=== PATIENT | male | born 1985 | race Caucasian/White ===

== ENCOUNTER → 2018-07-11 | Outpatient (CLI) | payer BC ==
[2018-07-11 05:39] LABS: HCT 41.9 % (39.0-53.0); HGB 13.7 gm/dL (13.0-17.5); MCH 29.1 pg (25.0-35.0); MCHC 32.7 g/dL (31.0-37.0); MCV 89.1 fL (80.0-100.0); Mean Platelet Volume 7.8; Platelet Count 255 k/uL (150-450); RBC 4.71 m/uL (4.30-5.90); RDW 12.6 % (11.5-15.5); WBC 4.9 k/uL (3.8-10.6)
[2018-07-11 05:54] LABS: ALT 31 U/L (21-72); AST 26 U/L (17-59); Alkaline Phosphatase 54 U/L (38-126); Anion Gap 14 mmol/L; Blood Urea Nitrogen 14 mg/dL (9-20); Calcium 9.7 mg/dL (8.4-10.2); Carbon Dioxide 24 mmol/L (22-30); Chloride 103 mmol/L (98-107); Cholesterol 183 mg/dL (<200); Glucose 88 mg/dL (74-99); HDL Cholesterol 66 mg/dL (40-60); LDL Cholesterol,Calculated 99 mg/dL (0-99); Potassium 4.1 mmol/L (3.5-5.1); Sodium 141 mmol/L (137-145); Total Bilirubin 0.5 mg/dL (0.2-1.3); Total Protein 7.9 g/dL (6.3-8.2); Triglycerides 90 mg/dL (<150)
== END | disposition home or self-care (01) ==
LOC: LABMAIN 04:21
PROVIDERS: ATTEND Family Medicine
DX: Z00.00 Encounter for general adult medical examination without abnormal findings (principal); Z82.49 Family history of ischemic heart disease and other diseases of the circulatory system
CPT/HCPCS: 36415; 80053; 80061; 85027; 86141

== ENCOUNTER → 2019-10-18 | Outpatient (CLI) | payer OTHER ==
[2019-10-18 07:52] LABS: HCT 42.5 % (39.0-53.0); HGB 14.1 gm/dL (13.0-17.5); MCH 30.2 pg (25.0-35.0); MCHC 33.2 g/dL (31.0-37.0); Mean Platelet Volume 7.5; Platelet Count 231 k/uL (150-450); RBC 4.67 m/uL (4.30-5.90); RDW 12.9 % (11.5-15.5); WBC 4.6 k/uL (3.8-10.6)
[2019-10-18 12:19] LABS: African American GFR (CKD) 127.8 (60.0-200.0); Albumin 4.6 g/dL (3.80-4.90); Albumin/Globulin Ratio 2.19 (1.60-3.17); Anion Gap 7.3 mmol/L (4.00-12.00); BUN/Creat Ratio 14.44 Ratio (12.00-20.00); Calcium 9.5 mg/dL (8.7-10.3); Carbon Dioxide 27.7 mmol/L (21.6-31.8); Chol/HDL Ratio 2.38; Globulin 2.1 g/dL (1.6-3.3); LDL Cholesterol,Calculated 84.6 mg/dL (0.0-131.0); Non-African American GFR(CKD) 110.3 (60.0-200.0); Potassium 4.6 mmol/L (3.5-5.5); Total Bilirubin 0.7 mg/dL (0.3-1.2); Total Protein 6.7 g/dL (6.2-8.2); VLDL Calculation 10.4 mg/dL (5.00-40.00)
== END | disposition home or self-care (01) ==
LOC: LABMAIN 07:22
PROVIDERS: ATTEND Family Medicine
DX: Z00.00 Encounter for general adult medical examination without abnormal findings (principal)
CPT/HCPCS: 36415; 80053; 80061; 85027

== ENCOUNTER → 2020-07-22 | Outpatient (CLI) | payer OTHER ==
[2020-07-22 11:48] LABS: Basophils # (A) 0.1 k/uL (0-0.2); Basophils % (A) 1 %; Eosinophils # (A) 0.1 k/uL (0-0.7); Eosinophils % (A) 2 %; HGB 14.5 gm/dL (13.0-17.5); Lymphocytes # (A) 1.4 k/uL (1.0-4.8); Lymphocytes % (A) 28 %; MCH 29.4 pg (25.0-35.0); MCHC 32.2 g/dL (31.0-37.0); MCV 91.3 fL (80.0-100.0); Mean Platelet Volume 8.3; Monocytes # (A) 0.3 k/uL (0-1.0); Monocytes % (A) 6 %; Neutrophils % (A) 60 %; Platelet Count 237 k/uL (150-450); RBC 4.93 m/uL (4.30-5.90); RDW 12.9 % (11.5-15.5)
[2020-07-22 17:28] LABS: African American GFR (CKD) 111.7 (60.0-200.0); Albumin 4.8 g/dL (3.80-4.90); Albumin/Globulin Ratio 1.92 (1.60-3.17); Anion Gap 6.3 mmol/L (4.00-12.00); C Reactive Protein, High Sens 0.42 mg/L (0.000-3.000); Calcium 9.8 mg/dL (8.7-10.3); Carbon Dioxide 27.7 mmol/L (21.6-31.8); Chol/HDL Ratio 2.52; Globulin 2.5 g/dL (1.6-3.3); LDL Cholesterol,Calculated 99.6 mg/dL (0.0-131.0); Non-African American GFR(CKD) 96.4 (60.0-200.0); Potassium 4.6 mmol/L (3.5-5.5); Total Protein 7.3 g/dL (6.2-8.2); VLDL Calculation 11.4 mg/dL (5.00-40.00)
== END | disposition home or self-care (01) ==
LOC: LABMAIN 11:34
PROVIDERS: ATTEND Family Medicine
DX: Z00.00 Encounter for general adult medical examination without abnormal findings (principal); Z82.49 Family history of ischemic heart disease and other diseases of the circulatory system
CPT/HCPCS: 36415; 80053; 80061; 85025; 86141

== ENCOUNTER → 2020-11-05 | Outpatient (CLI) | payer OTHER | END | disposition home or self-care (01) | LOC: LABMAIN 08:10 | PROVIDERS: ATTEND Physician Assistant | DX: Z20.828 Contact with and (suspected) exposure to other viral communicable diseases (principal) | CPT/HCPCS: 36415; 86769 ==

== ENCOUNTER → 2020-11-14 | Outpatient (CLI) | payer OTHER | END | disposition home or self-care (01) | LOC: LABMAIN 20:09 | PROVIDERS: ATTEND Emergency Medicine | DX: Z01.84 Encounter for antibody response examination (principal) | CPT/HCPCS: 36415; 86769 ==

== ENCOUNTER 2020-11-28 09:24 | Emergency (ER) | payer OTHER ==
[2020-11-28] MEDS ORDERED: DIPH,PERTUS(ACELL)TETVAC-LF 0.5 ML VIAL IM ONE (09:27)
[2020-11-28] MEDS ORDERED: KETOROLAC 15 MG/ML 1 ML VIAL ONE (09:33)
[2020-11-28 09:38] VITALS: BP 156/98; PULSE 106; RESP 16; TEMP 98.7
[2020-11-28] MEDS ORDERED: KETOROLAC 15 MG/ML 1 ML VIAL IVP STA (09:40)
[2020-11-28] MEDS ORDERED: HYDROmorphone 1 MG/ML 1 ML SYRINGE IVP STA (09:43)
[2020-11-28] MEDS ORDERED: ONDANSETRON 4 MG/2 ML VIAL IVP STA (09:43)
--- NOTE | 2020-11-28 09:51 | XR ---
EXAMINATION TYPE: XR hand complete LT DATE OF EXAM: 11/28/2020 COMPARISON: NONE HISTORY: 34-year-old male left thumb amputation with saw, pain TECHNIQUE: 3 views FINDINGS: There is an obliquely oriented amputation of the first proximal phalanx at the level of the phalangea l neck. This is an open, traumatic osteotomy with numerous foci of bony debris in the adjacent soft t issues measuring up to 3 mm. No additional acute fracture, subluxation, dislocation. IMPRESSION: Obliquely oriented amputation of the first proximal phalanx at the level of the phalangeal neck. Nume gunnar foci of bony debris in the adjacent soft tissues measuring up to 3 mm.
[2020-11-28] MEDS ORDERED: LIDOCAINE 1% INJ 10MG/ML (20 ML MDV) SQ ONE (09:55)
--- NOTE | 2020-11-28 10:00 | ED ---
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 He did totally amputate the thumb through the IP joint on the left hand. He does complain of severe pain. He's not sure when his last tetanus shot was. He is ALLERGIC to penicillin does not believe is any problems with cephalosporins. He has agreed to get a cephalosporin IV. No other complaints other injuries reported. (Calin Arboleda) - Related Data Previous Rx's Medication Instructions Recorded Azithromycin [Zithromax] 500 mg PO DAILY #9 tab 10/18/15 Allergies Allergy/AdvReac Type Severity Reaction Status Date / Time Penicillins Allergy Anaphylaxis Verified 10/18/15 03:49 Review of Systems ROS Other: All systems not noted in ROS Statement are negative. <Toño Mckinney - Last Filed: 11/28/20 10:00> ROS Other: All systems not noted in ROS Statement are negative. <RoblesCalin - Last Filed: 11/28/20 10:04> ROS Statement: Those systems with pertinent positive or pertinent negative responses have been documented in the HPI. Past Medical History Past Medical History: No Reported History History of Any Multi-Drug Resistant Organisms: None Reported Past Surgical History: No Surgical Hx Reported Past Psychological History: No Psychological Hx Reported Smoking Status: Never smoker Past Alcohol Use History: Occasional Past Drug Use History: None Reported <Calin Arboleda - Last Filed: 11/28/20 10:04> General Exam Limitations: no limitations General appearance: alert, anxious, in distress Head exam: Present: atraumatic, normocephalic, normal inspection Eye exam: Present: normal appearance, PERRL, EOMI. Absent: scleral icterus, conjunctival injection, periorbital swelling ENT exam: Present: normal exam, mucous membranes moist Neck exam: Present: normal inspection. Absent: tenderness, meningismus, lymphadenopathy Respiratory exam: Present: normal lung sounds bilaterally. Absent: respiratory distress, wheezes, rales, rhonchi, stridor Cardiovascular Exam: Present: regular rate, normal rhythm, normal heart sounds. Absent: systolic murmur, diastolic murmur, rubs, gallop, clicks GI/Abdominal exam: Present: soft, normal bowel sounds. Absent: distended, tenderness, guarding, rebound, rigid Extremities exam: Present: full ROM, normal capillary refill, other (Examination left thumb reveals and agitation at about a 45 angle through the IP joint with complete amputation. Patient does have the dictated portion of the thumb with him packed on ice.). Absent: tenderness, pedal edema, joint swelling, calf tenderness Back exam: Present: normal inspection Neurological exam: Present: alert, oriented X3, CN II-XII intact Psychiatric exam: Present: normal affect, normal mood Skin exam: Present: warm, dry, intact, normal color. Absent: rash <Calin Arboleda - Last Filed: 11/28/20 10:04> - General Exam Comments Initial Comments: This is a well-developed well-nourished awake alert oriented 3 male Moose Coma Scale of 15 (Calin Arboleda) Course Vital Signs 11/28/20 09:34 Temperature 98.7 F Pulse Rate 106 H Respiratory 16 Rate Blood Pressure 156/98 O2 Sat by Pulse 100 Oximetry Procedures - Nerve Block Consent Obtained: verbal consent Local Anesthetic Used: Lidocaine 1% Amount of anesthesia used: 8 Side: left Nerve Blocks: digital Procedure Successful: Yes Complications: none Patient Tolerated Procedure: well, no complications (Thumb) <Toño Mckinney - Last Filed: 11/28/20 10:00> Medical Decision Making - Radiology Data Radiology results: report reviewed (I did review the x-ray the amputation as described above.), image reviewed <Calin Arboleda - Last Filed: 11/28/20 10:04> - Medical Decision Making I did discuss the case with Dr. Escamilla who did recommend transferred to a tertiary care facility with potential for replant. I did discuss the case with Dr. Alisha Lauren at [facility] was agreed to set the patient transfer. Patient will be transferred EMS ER to ER. I did discuss this with the patient has . The patient get a digital block by Toño by PA he did had no reaction to the IV antibiotic. (Calin Arboleda) Disposition <Toño Mckinney - Last Filed: 11/28/20 10:00> - Out of Hospital Transfer - Req. Specs Out of Hospital Transfer - Requested Specifics: Other Emergency Center <Calin Arboleda - Last Filed: 11/28/20 10:04> Clinical Impression: Amputation of left thumb Disposition: OTHER INSTITUTION NOT DEFINED Condition: Serious Referrals: Trace Schofield MD [Primary Care Provider] - 1-2 days
== END 2020-11-28 10:00 | disposition other institution (70) ==
LOC: EC 09:24
DX: S68.012A Complete traumatic metacarpophalangeal amputation of left thumb, initial encounter (principal); W31.82XA Contact with other commercial machinery, initial encounter
CPT/HCPCS: 73130; 90715; 99284; 96365; 96375 ×3; 90471; J0690; J2405; J2001; J1170; J1885

== ENCOUNTER → 2021-08-01 | Outpatient (CLI) | payer OTHER ==
[2021-08-01 13:21] LABS: HCT 43.5 % (39.0-53.0); HGB 14.5 gm/dL (13.0-17.5); MCH 31.1 pg (25.0-35.0); MCHC 33.3 g/dL (31.0-37.0); MCV 93.4 fL (80.0-100.0); Mean Platelet Volume 8.6; Platelet Count 242 k/uL (150-450); RBC 4.66 m/uL (4.30-5.90); RDW 12.3 % (11.5-15.5); WBC 4.7 k/uL (3.8-10.6)
[2021-08-01 13:32] LABS: ALT 20 U/L (4-49); AST 30 U/L (17-59); African American GFR (CKD) >90 (>60 ml/min/1.73 sqM); Albumin 4.8 g/dL (3.5-5.0); Albumin/Globulin Ratio 1.7; Alkaline Phosphatase 49 U/L (38-126); Anion Gap 10 mmol/L; Blood Urea Nitrogen 16 mg/dL (9-20); Calcium 9.9 mg/dL (8.4-10.2); Carbon Dioxide 25 mmol/L (22-30); Chloride 103 mmol/L (98-107); Globulin 2.8 g/dL; Glucose 110 mg/dL (74-99); Non-African American GFR(CKD) >90 (>60 ml/min/1.73 sqM); Sodium 138 mmol/L (137-145); Total Bilirubin 0.7 mg/dL (0.2-1.3); Total Protein 7.6 g/dL (6.3-8.2)
[2021-08-02 05:05] LABS: Chol/HDL Ratio 2.37; Cholesterol 161 mg/dL (0-200); Triglycerides <50.0 mg/dL (0.0-149.0)
== END | disposition home or self-care (01) ==
LOC: LABWHC1 12:37
PROVIDERS: ATTEND Family Medicine
DX: Z00.00 Encounter for general adult medical examination without abnormal findings (principal)
CPT/HCPCS: 36415; 80053; 80061; 82306; 85027

== ENCOUNTER → 2021-10-16 | Outpatient (CLI) | payer OTHER | END | disposition home or self-care (01) | LOC: LABMAIN 12:04 | PROVIDERS: ATTEND Emergency Medicine | DX: Z01.84 Encounter for antibody response examination (principal) | CPT/HCPCS: 36415; 86769 ==

== ENCOUNTER → 2023-04-20 | Outpatient (CLI) | payer OTHER ==
[2023-04-20 15:23] LABS: ALT 20 U/L (4-49); AST 27 U/L (17-59); African American GFR (CKD) >90 (>60 ml/min/1.73 sqM); Albumin 5.1 g/dL (3.5-5.0); Albumin/Globulin Ratio 1.5; Alkaline Phosphatase 58 U/L (38-126); Anion Gap 14 mmol/L; Blood Urea Nitrogen 12 mg/dL (9-20); Carbon Dioxide 26 mmol/L (22-30); Chloride 101 mmol/L (98-107); Globulin 3.3 g/dL; Glucose 102 mg/dL (74-99); Non-African American GFR(CKD) >90 (>60 ml/min/1.73 sqM); Potassium 4.5 mmol/L (3.5-5.1); Sodium 141 mmol/L (137-145); Total Bilirubin 0.9 mg/dL (0.2-1.3); Total Protein 8.4 g/dL (6.3-8.2)
[2023-04-21 01:33] LABS: HGB 14.8 d/dL; MCHC 32.9 d/dL; MCV 91.3 FL; Mean Platelet Volume 11.6 FL; NRBC Per 100 WBC 0 X 10*3/uL; Platelet Count 273 X 10*3/uL; RBC 4.93 X 10*6/uL; RDW 13.2 %; WBC 7.61 X 10*3/uL
[2023-04-21 02:25] LABS: Chol/HDL Ratio 2.38 Ratio; LDL Cholesterol,Calculated 98.9 mg/dL; VLDL Calculation 11.84 mg/dL
== END | disposition home or self-care (01) ==
LOC: LABMAIN 13:59
PROVIDERS: ATTEND Family Medicine
DX: Z00.00 Encounter for general adult medical examination without abnormal findings (principal)
CPT/HCPCS: 80053; 80061; 85027

== ENCOUNTER → 2023-08-04 | Outpatient (CLI) | payer OTHER ==
[2023-08-04 16:27] LABS: HCT 44.7 % (39.6-50.0); HGB 14.2 d/dL (13.0-17.0); MCH 29.6 pg (27.0-32.0); MCHC 31.8 d/dL (32.0-37.0); MCV 93.3 FL (80.0-97.0); Mean Platelet Volume 11.3 FL (9.5-12.2); NRBC Per 100 WBC 0 X 10*3/uL (0.00-0.01); Platelet Count 261 X 10*3/uL (140-440); RBC 4.79 X 10*6/uL (4.40-5.60); RDW 13.2 % (11.5-14.5); WBC 6.88 X 10*3/uL (4.50-10.00)
[2023-08-04 16:43] LABS: ALT 20 U/L (10-49); AST 22 U/L (14-35); Albumin 5.3 d/dL (3.8-4.9); Albumin/Globulin Ratio 2.04 Ratio (1.60-3.17); Alkaline Phosphatase 58 U/L (41-126); Calcium 10.1 mg/dL (8.7-10.3); Carbon Dioxide 24.6 mmol/L (21.6-31.8); Chloride 102 mmol/L (96-109); Chol/HDL Ratio 2.26 Ratio; Globulin 2.6 d/dL (1.6-3.3); Glucose 102 mg/dL (70-110); LDL Cholesterol,Calculated 85.3 mg/dL (0.0-131.0); Potassium 4.4 mmol/L (3.5-5.5); Sodium 142 mmol/L (135-145); Total Bilirubin 0.5 mg/dL (0.3-1.2); Total Protein 7.9 d/dL (6.2-8.2); VLDL Calculation 10.96 mg/dL (5.00-40.00)
== END | disposition home or self-care (01) ==
LOC: LABMAIN 08:57
PROVIDERS: ATTEND Physician Assistant
DX: Z00.00 Encounter for general adult medical examination without abnormal findings (principal); R79.9 Abnormal finding of blood chemistry, unspecified
CPT/HCPCS: 80053; 80061; 83090; 85027

== ENCOUNTER → 2024-01-19 | Outpatient (CLI) | payer OTHER | END | disposition home or self-care (01) | LOC: LABMAIN 10:17 | PROVIDERS: ATTEND Emergency Medicine | DX: Z11.2 Encounter for screening for other bacterial diseases (principal) | CPT/HCPCS: 87651 ==

== ENCOUNTER → 2024-08-20 | Outpatient (CLI) | payer OTHER ==
[2024-08-20 10:04] LABS: HCT 44.7 % (39.0-53.0); HGB 14.9 gm/dL (13.0-17.5); MCH 30.8 pg (25.0-35.0); MCHC 33.4 g/dL (31.0-37.0); MCV 92.1 fL (80.0-100.0); Mean Platelet Volume 8.6; Platelet Count 274 k/uL (150-450); RBC 4.85 m/uL (4.30-5.90); WBC 8.2 k/uL (3.8-10.6)
[2024-08-20 10:14] LABS: ALT 18 U/L (4-49); AST 24 U/L (17-59); African American GFR (CKD) >90 (>60 ml/min/1.73 sqM); Albumin 5.2 g/dL (3.5-5.0); Albumin/Globulin Ratio 1.8; Alkaline Phosphatase 47 U/L (38-126); Anion Gap 13 mmol/L; Blood Urea Nitrogen 13 mg/dL (9-20); Carbon Dioxide 21 mmol/L (22-30); Chloride 104 mmol/L (98-107); Globulin 2.9 g/dL; Glucose 105 mg/dL (74-99); Non-African American GFR(CKD) >90 (>60 ml/min/1.73 sqM); Potassium 4.4 mmol/L (3.5-5.1); Sodium 138 mmol/L (137-145); Total Bilirubin 0.8 mg/dL (0.2-1.3); Total Protein 8.1 g/dL (6.3-8.2)
[2024-08-20 23:27] LABS: Chol/HDL Ratio 2.32 Ratio; LDL Cholesterol,Calculated 87.6 mg/dL (0.0-131.0); VLDL Calculation 13.22 mg/dL (5.00-40.00)
== END | disposition home or self-care (01) ==
LOC: LABMAIN 09:51
PROVIDERS: ATTEND Physician Assistant
DX: Z00.00 Encounter for general adult medical examination without abnormal findings (principal)
CPT/HCPCS: 80053; 80061; 83090; 85027

== ENCOUNTER → 2025-02-16 | Outpatient (CLI) | payer OTHER | END | disposition home or self-care (01) | LOC: LABMAIN 07:31 | PROVIDERS: ATTEND Family Medicine | DX: R76.12 Nonspecific reaction to cell mediated immunity measurement of gamma interferon antigen response without active tuberculosis (principal) | CPT/HCPCS: 86480 ==